=== PATIENT | female | born 1995 | race Caucasian/White ===

== ENCOUNTER 2024-02-16 00:11 | Emergency (ER) | payer OTHER, SELFPAY ==
[2024-02-16] MEDS ORDERED: KETOROLAC 30 MG/ML INJ ONE (01:04)
[2024-02-16] MEDS ORDERED: ONDANSETRON 4 MG/2 ML VIAL ONE (01:04)
[2024-02-16] MEDS ORDERED: NA CHLORIDE 0.9% 1,000 ML ONE ×2 (01:04→02:08)
[2024-02-16 01:19] LABS: Specific Gravity 1.029 (1.005-1.030); Urine Bacteria None Seen /HPF (<20); Urine Bilirubin NEGATIVE (Negative); Urine Blood Trace (Negative); Urine Clarity Turbid (Clear); Urine Color Light-Yellow (Yellow); Urine Culture Reflex Order REFLEXED; Urine Glucose NEGATIVE (Negative); Urine Ketones NEGATIVE (Negative); Urine Microscopic Reflex YN ORDER UMIC; Urine Mucus Slight /HPF (None Seen); Urine Nitrite NEGATIVE (Negative); Urine Protein TRACE (Negative); Urine Urobilinogen 1+ (Normal)
[2024-02-16 01:20] LABS: Specific Gravity 1.029 (1.005-1.030)
[2024-02-16 01:23] LABS: SARS-CoV-2 Antigen CONTROL BLUE LINE VIS/BG OK; SARS-CoV-2 Antigen Rapid Res Negative (Negative)
[2024-02-16 01:25] LABS: Absolute Eosinophils 0.2 K/uL (0-0.5); Absolute Lymphocytes (CBC) 1.1 K/uL (0.7-4.9); Absolute Monocytes 0.6 K/uL (0.1-1.3); Basophils % 0.2 % (0-1.3); Eosinophils % 1.7 % (0-4.4); Hematocrit 39.2 % (36.0-45.0); Hemoglobin 12.8 g/dL (12.0-15.0); MCH 27.2 pg (27.0-35.0); MCHC 32.6 g/dL (32.0-36.0); MCV 83.3 fL (80-100); MPV 8.3 fL (7.6-11.3); Monocytes % 7.2 % (3.3-12.3); Neutrophils % 78.9 % (41.7-73.7); Platelets 353 thou/uL (152-406); Red Cell Distribution Width 14.4 % (12.1-15.2)
[2024-02-16 01:29] LABS: Albumin 3.7 g/dL (3.4-5.0); Albumin/Globulin Ratio 0.8 (1.1-1.8); Anion Gap 8.5 mEq/L (5.0-15.0); Bilirubin Total 0.3 mg/dL (0.2-1.0); Globulin 4.6 g/dL (2.3-3.5); Potassium 3.5 mEq/L (3.5-5.1); Protein, Total 8.3 g/dL (6.4-8.2)
[2024-02-16] MEDS ORDERED: CEFTRIAXONE 1000 MG/VIAL ONE (01:40)
--- NOTE | 2024-02-16 07:35 | ER ---
Nurse's Notes [facility] Name: Mary Bello Age: 28 yrs Sex: Female : 1995 Arrival Date: 02/16/2024 Time: 00:11 Bed 20 Private MD: Diagnosis: Lobar pneumonia, unspecified organism;Abdominal pain, Generalized;UTI/ Urinary tract infection, site not specified Presentation: 02/15 00:19 Chief complaint: Patient states: I have been having fever, body aches, upper abdominal ha1 pain, and nausea/vomiting. 00:19 Coronavirus screen: Vaccine status: Patient reports being unvaccinated. Ebola Screen: ha1 No symptoms or risks identified at this time. Initial Sepsis Screen: Does the patient meet any 2 criteria? No. Patient's initial sepsis screen is negative. Does the patient have a suspected source of infection? No. Patient's initial sepsis screen is negative. Risk Assessment: Do you want to hurt yourself or someone else? Patient reports no desire to harm self or others. Onset of symptoms was February 15, 2024. 00:19 Method Of Arrival: Ambulatory ha1 00:19 Acuity: SIGRID 3 ha1 Triage Assessment: 00:19 General: Appears uncomfortable, Behavior is calm, cooperative. Pain: Complains of pain ha1 in headache Pain does not radiate. Pain currently is 7 out of 10 on a pain scale. Quality of pain is described as aching. Neuro: Level of Consciousness is awake, alert, obeys commands, Oriented to person, place, time, situation. Neuro: Reports headache. Cardiovascular: Capillary refill < 3 seconds Patient's skin is warm and dry. Respiratory: Airway is patent Respiratory effort is even, unlabored, Respiratory pattern is regular, symmetrical. GI: Abdomen is round non-distended, Reports upper abdominal pain, nausea, vomiting. Musculoskeletal: Circulation, motion, and sensation intact. Range of motion: intact in all extremities. 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 - Infectious Disease History:: Denies. - Social history:: Smoking status: Patient denies any tobacco usage or history of. Screenin:37 [facility] ED Fall Risk Assessment (Adult) History of falling in the last 3 months, ha1 including since admission No falls in past 3 months (0 pts) Confusion or Disorientation No (0 pts) Intoxicated or Sedated No (0 pts) Impaired Gait No (0 pts) Mobility Assist Device Used No (0 pt) Altered Elimination No (0 pt) Score/Fall Risk Level 0 - 2 = Low Risk Oriented to surroundings, Maintained a safe environment, Educated pt \T\ family on fall prevention, incl call for assistance when getting out of bed, Hourly rounding (assess needs \T\ fall precautionary measures) done. Abuse screen: Denies threats or abuse. Denies injuries from another. Nutritional screening: No deficits noted. Tuberculosis screening: No symptoms or risk factors identified. Assessment: 00:41 General: Appears uncomfortable, Behavior is calm, cooperative, appropriate for age. cp4 Pain: Complains of pain in abdomen Pain currently is 7 out of 10 on a pain scale. Neuro: Level of Consciousness is awake, alert, obeys commands, Oriented to person, place, time, situation. Cardiovascular: No deficits noted. Respiratory: No deficits noted. GI: Abdomen is round non-distended, Bowel sounds present X 4 quads. Abd is soft and non tender X 4 quads. : No deficits noted. EENT: No deficits noted. Derm: No deficits noted. Musculoskeletal: No deficits noted. 01:45 Reassessment: No changes from previously documented assessment. Patient and/or family cp4 updated on plan of care and expected duration. Pain level reassessed. Patient is alert, oriented x 3, equal unlabored respirations, skin warm/dry/pink. 02:45 Reassessment: No changes from previously documented assessment. Patient and/or family cp4 updated on plan of care and expected duration. Pain level reassessed. Patient is alert, oriented x 3, equal unlabored respirations, skin warm/dry/pink. 03:45 Reassessment: No changes from previously documented assessment. Patient and/or family cp4 updated on plan of care and expected duration. Pain level reassessed. Patient is alert, oriented x 3, equal unlabored respirations, skin warm/dry/pink. 04:30 Reassessment: No changes from previously documented assessment. Patient and/or family rg5 updated on plan of care and expected duration. Pain level reassessed. Patient is alert, oriented x 3, equal unlabored respirations, skin warm/dry/pink. 06:00 Reassessment: No changes from previously documented assessment. Patient and/or family rg5 updated on plan of care and expected duration. Pain level reassessed. Patient is alert, oriented x 3, equal unlabored respirations, skin warm/dry/pink. Vital Signs: 00:19 BP 134 / 83; Pulse 130; Resp 20 S; Temp 99.9(O); Pulse Ox 99% on R/A; Weight 90.72 kg; ha1 Height 5 ft. 5 in. ; 01:41 BP 134 / 88; Pulse 89; Resp 18; Pulse Ox 100% ; cp4 02:48 BP 126 / 76; Pulse 84; Resp 18; Pulse Ox 100% ; cp4 04:00 BP 117 / 70; Pulse 79; Resp 17; Pulse Ox 98% ; cp4 05:00 BP 107 / 69; Pulse 72; Resp 17; Temp 98; Pulse Ox 97% on R/A; rg5 06:01 BP 112 / 73; Pulse 71; Resp 17; Temp 98.4(O); Pulse Ox 97% ; Pain 3/10; rg5 07:45 BP 103 / 61; Pulse 88; Resp 16; Pulse Ox 98% ; bp 00:19 Body Mass Index 33.28 (90.72 kg, 165.1 cm) ha1 06:01 Pain Scale: Adult rg5 ED Course: 00:14 Patient arrived in ED. jj6 00:19 Patient has correct armband on for positive identification. Placed in gown. Bed in low ha1 position. Call light in reach. Side rails up X 1. 00:31 Antoni Watts MD is Attending Physician. bo1 00:34 Triage completed. ha1 00:39 Diamante Garcia is Primary Nurse. cp4 01:08 No provider procedures requiring assistance completed. Initial lab(s) drawn, by , bety sent to lab. Urine collected: clean catch specimen, clear. Inserted saline lock: 22 gauge in right antecubital area, using aseptic technique. Blood collected. Flushed with 10 mL NS. 04:[address] via stretcher. cp4 04:39 CT Abd/Pelvis - PO and IV Contrast In Process Unspecified. EDMS 04:[address]. cp4 07:37 Huseyin Hansen, RN is Primary Nurse. bp 07:45 IV discontinued, intact, bleeding controlled, No redness/swelling at site. Pressure bp dressing applied. Administered Medications: 01:07 Drug: NS 0.9% IV 1000 ml IV at 1 bolus Per protocol; 1000 mL bolus Route: IV; Rate: 1 cp4 bolus; Site: right antecubital; 02:11 Follow up: Response: No adverse reaction; IV Status: Completed infusion; IV Intake: cp4 1000ml 01:08 Drug: Ondansetron IVP 4 mg IVP once; over 2 minutes Route: IVP; Site: right antecubital;cp4 02:11 Follow up: Response: No adverse reaction cp4 01:23 Drug: Ketorolac IVP 30 mg IVP once Route: IVP; Site: right antecubital; cp4 02:10 Follow up: Response: No adverse reaction cp4 01:43 Drug: Rocephin IV 1 grams IV at bolus once; Given slow IV push per pharmacy cp4 instructions Route: IV; Rate: bolus; Site: right antecubital; 07:46 Follow up: IV Status: Completed infusion; IV Intake: 100ml bp 02:11 Drug: NS 0.9% IV 1000 ml IV at 1 bolus Per protocol; 1000 mL bolus Route: IV; Rate: 1 cp4 bolus; Site: right antecubital; 07:46 Follow up: IV Status: Completed infusion; IV Intake: 1000ml bp Medication: 00:41 VIS not applicable for this client. cp4 Intake: 02:11 IV: 1000ml; Total: 1000ml. cp4 07:46 IV: 1000ml; Total: 2000ml. bp 07:46 IV: 100ml; Total: 2100ml. bp Outcome: 07:34 Discharge ordered by . bo1 07:45 Discharged to home ambulatory, bp 07:45 Condition: stable 07:45 Discharge instructions given to patient, Instructed on discharge instructions, follow up and referral plans. medication usage, Demonstrated understanding of instructions, follow-up care, medications, Prescriptions given X 3, 07:46 Patient left the ED. bp Signatures: Dispatcher [employer] EDMS Huseyin Hansen, RN RN bp Magda Keith jj6 Rula Brewer RN RN [facility] Diamante Garcia cp4 Antoni Watts MD MD bo1 Karthik Sprague, RN RN rg5
--- NOTE | 2024-02-16 07:35 | EDPHYS ---
Physician Documentation [facility] Name: Mary Bello Age: 28 yrs Sex: Female : 1995 Arrival Date: 02/16/2024 Time: 00:11 Bed 20 Private MD: ED Physician Antoni Watts HPI: 02/15 01:54 This 28 yrs old Female presents to ER via Ambulatory with complaints of Fever, bo1 Abdominal Pain, Nausea/Vomiting. 01:54 The patient reports fever, not measured (subjective). Onset: The symptoms/episode bo1 began/occurred gradually, 2 day(s) ago, Pt is in town with her (working locally) and kids (starting school on Saturday). Modifying factors: The patient has recently traveled, within the [place], by car from home - 2.5 hours away. Associated signs and symptoms: Pertinent positives: abdominal pain, nausea. Severity of symptoms: At their worst the symptoms were moderate. Pt denies diarrhea, no pain with ambulation. 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 - Infectious Disease History:: Denies. - Social history:: Smoking status: Patient denies any tobacco usage or history of. ROS: 07:37 Constitutional: Negative for fever recorded. Pt has felt warm. bo1 07:37 Cardiovascular: Negative for chest pain, 07:37 Respiratory: Negative for shortness of breath, 07:37 Abdomen/GI: Positive for abdominal pain, nausea, 07:37 : Negative for urinary symptoms, 07:37 MS/extremity: Negative for acute changes, pain, swelling, tenderness, 07:37 Skin: Negative for rash, 07:37 All other systems are negative, Exam: 07:36 Constitutional: This is a well developed, well nourished patient who is awake, alert, bo1 and in mild acute distress. 07:36 Constitutional: The patient appears alert, awake, non-toxic, 07:36 Head/face: Exam is negative for acute changes, 07:36 ENT: Exam is negative for acute changes, 07:36 Neck: Exam negative for acute changes, 07:36 Cardiovascular: Rate: tachycardic, Pulses: no pulse deficits are appreciated, Heart sounds: normal, 07:36 Respiratory: the patient does not display signs of respiratory distress, Respirations: normal, Breath sounds: decreased breath sounds, 07:36 Abdomen/GI: Inspection: abdomen appears normal, Palpation: mild abdominal tenderness, in the right upper quadrant and left upper quadrant, 07:36 Back: CVA tenderness, is absent, 07:36 Musculoskeletal/extremity: Extremities: all appear grossly normal, with no appreciated pain with palpation, 07:36 Skin: no rash present. Vital Signs: 00:19 BP 134 / 83; Pulse 130; Resp 20 S; Temp 99.9(O); Pulse Ox 99% on R/A; Weight 90.72 kg; ha1 Height 5 ft. 5 in. ; 01:41 BP 134 / 88; Pulse 89; Resp 18; Pulse Ox 100% ; cp4 02:48 BP 126 / 76; Pulse 84; Resp 18; Pulse Ox 100% ; cp4 04:00 BP 117 / 70; Pulse 79; Resp 17; Pulse Ox 98% ; cp4 05:00 BP 107 / 69; Pulse 72; Resp 17; Temp 98; Pulse Ox 97% on R/A; rg5 06:01 BP 112 / 73; Pulse 71; Resp 17; Temp 98.4(O); Pulse Ox 97% ; Pain 3/10; rg5 07:45 BP 103 / 61; Pulse 88; Resp 16; Pulse Ox 98% ; bp 00:19 Body Mass Index 33.28 (90.72 kg, 165.1 cm) ha1 06:01 Pain Scale: Adult rg5 MDM: 00:31 Patient medically screened. bo1 07:34 Differential diagnosis: bacterial infection, pneumonia UTI. Data reviewed: vital signs, bo1 lab test result(s), CBC, electrolytes, urinalysis, radiologic studies, CT scan. Special discussion: Coverage with two agents - spouse. ED course: Pt given pain management and IV abx. 02/15 00:48 Order name: CBC with Diff; Complete Time: 01:35 bo02/15 00:48 Order name: CMP; Complete Time: :35 bo02/15 00:48 Order name: Lipase; Complete Time: 01:35 bo02/15 00:48 Order name: Test, Urine; Complete Time: 01:35 bo02/15 00:48 Order name: Urinalysis w/ reflexes; Complete Time: 01:35 bo1 02/15 00:48 Order name: SARS-COV-2 Antigen Rapid; Complete Time: 01:35 bo1 02/15 01:25 Order name: Urine Culture EDKS 02/15 01:59 Order name: CT Abd/Pelvis - PO and IV Contrast bo1 02/15 00:48 Order name: IV Saline Lock; Complete Time: 01:08 bo1 02/15 00:48 Order name: Labs collected and sent; Complete Time: 01:08 bo1 02/15 01:36 Order name: Vital Signs; Complete Time: 01:41 bo1 Administered Medications: 01:07 Drug: NS 0.9% IV 1000 ml IV at 1 bolus Per protocol; 1000 mL bolus Route: IV; Rate: 1 cp4 bolus; Site: right antecubital; 02:11 Follow up: Response: No adverse reaction; IV Status: Completed infusion; IV Intake: cp4 1000ml 01:08 Drug: Ondansetron IVP 4 mg IVP once; over 2 minutes Route: IVP; Site: right antecubital;cp4 02:11 Follow up: Response: No adverse reaction cp4 01:23 Drug: Ketorolac IVP 30 mg IVP once Route: IVP; Site: right antecubital; cp4 02:10 Follow up: Response: No adverse reaction cp4 01:43 Drug: Rocephin IV 1 grams IV at bolus once; Given slow IV push per pharmacy cp4 instructions Route: IV; Rate: bolus; Site: right antecubital; 07:46 Follow up: IV Status: Completed infusion; IV Intake: 100ml bp 02:11 Drug: NS 0.9% IV 1000 ml IV at 1 bolus Per protocol; 1000 mL bolus Route: IV; Rate: 1 cp4 bolus; Site: right antecubital; 07:46 Follow up: IV Status: Completed infusion; IV Intake: 1000ml bp Disposition Summary: 02/16/24 07:34 Discharge Ordered Notes: Location: Home bo1 Problem: new bo1 Symptoms: have improved bo1 Condition: Stable bo1 Diagnosis - Lobar pneumonia, unspecified organism bo1 - Abdominal pain, Generalized bo1 - UTI/ Urinary tract infection, site not specified bo1 Followup: bo1 - With: Private Physician - When: 5 - 6 days - Reason: Continuance of care Discharge Instructions: - Discharge Summary Sheet bo1 - Community-Acquired Pneumonia, Adult bo1 - Urinary Tract Infection, Adult, [id number] bo1 - Abdominal Pain, Adult, [id number] bo1 Forms: - Medication Reconciliation Form bo1 - Antibiotic Education bo1 - Prescription Opioid Use bo1 - Patient Portal Instructions bo1 - Leadership Thank You Letter bo1 Prescriptions: - azithromycin 250 mg Oral tablet - take 2 tablet ORAL route daily for 7 days; 14 tablet; Refills: 0, Product bo1 Selection Permitted - Cipro 500 mg Oral Tablet - take 1 tablet ORAL route every 12 hours for 10 days; 20 tablet; Refills: 0, bo1 Product Selection Permitted - Ultram 50 mg Oral Tablet - take 1 tablet ORAL route every 6 hours As needed; 12 tablet; Refills: 0, bo1 Product Selection Permitted Signatures: Dispatcher [employer] Rula Núñez RN RN ha1 Diamante Garcia cp4 Antoni Watts MD MD bo1 Huseyin Hansen RN bp Corrections: (The following items were deleted from the chart) 00:48 00:48 SARS-COV-2 Antigen Rapid+I.LAB.BRZ ordered. EDMS EDMS
[2024-02-16 08:09] VITALS: TEMP 98.4
[2024-02-16 08:11] VITALS: BP 103/61; O2SAT 98
--- NOTE | 2024-02-17 10:23 | RAD REPORT ---
EXAM DESCRIPTION: CT - Abdomen Pelvis W Contrast - 02/16/2024 4:37 am CLINICAL HISTORY: The patient is 28 years old and is Female; ABD PAIN TECHNIQUE: Axial computed tomography images of the abdomen and pelvis with intravenous contrast. S agittal and coronal reformatted images were created and reviewed. This CT exam was performed using one or more of the following dose reduction techniques: automated exposure control, adjustment of t he mA and/or kV according to patient size, and/or use of iterative reconstruction technique. COMPARISON: No relevant prior studies available. FINDINGS: Lung bases: Right lower lobe consolidation. ABDOMEN: Liver: Hepatomegaly with diffuse hepatic steatosis. Gallbladder and bile ducts: Unremarkable. No calcified stones. No ductal dilation. Pancreas: Unremarkable. No mass. No ductal dilation. Spleen: Mild splenomegaly. Adrenals: Unremarkable. No mass. Kidneys and ureters: Unremarkable. No solid mass. No hydronephrosis. Stomach and bowel: Unremarkable. No obstruction. No mucosal thickening. PELVIS: Appendix: The appendix is normal. Bladder: Unremarkable. Reproductive: Corpus luteum cyst in the left ovary. ABDOMEN and PELVIS: Intraperitoneal space: Unremarkable. No free air. No significant fluid collection. Bones/joints: No acute fracture. No dislocation. Soft tissues: Unremarkable. Vasculature: Unremarkable. No abdominal aortic aneurysm. Lymph nodes: Unremarkable. No enlarged lymph nodes. IMPRESSION: 1. Right lower lobe consolidation. 2. Hepatomegaly with diffuse hepatic steatosis. 3. Mild splenomegaly. 4. The appendix is normal. Electronically signed by: Rodger Goodson MD 02/16/2024 05:14 AM CDT 8 Due to temporary technical issues with the PACS/Fluency reporting system, reports are being signed by the in house radiologist without review as a courtesy to ensure prompt reporting. The interpreting r adiologist is fully responsible for the content of the report.
== END 2024-02-16 07:46 | disposition home or self-care (01) ==
LOC: ER 00:11
DX: J18.1 Lobar pneumonia, unspecified organism (principal); N39.0 Urinary tract infection, site not specified; R10.84 Generalized abdominal pain; Z11.52 Encounter for screening for COVID-19
CPT/HCPCS: 96365; 96361; 87088; 85025; 81001; 87086; 36415; 81025; 83690; 80053; 74177; 96375; 99285; 96366; 87811; Q9967; J2405; J7030 ×2; J0696